=== PATIENT | male | born 1995 | race Caucasian/White ===

== ENCOUNTER 2016-04-13 21:00 | Emergency (ER) | payer OTHER ==
--- NOTE | 2016-04-13 21:40 | EDDOCDS ---
Physician Documentation [facility] Name: Soy Mora Age: 20 yrs Sex: Male : 1995 Arrival Date: 04/13/2016 Time: 21:00 Bed I8 / 16 Private MD: Willie Moore [facility] Disposition: 04/13/16 21:30 Discharged to Home/Self Care. Impression: Encounter for other postprocedural aftercare. - Condition is Stable. - Medication Reconciliation, Local Pharmacy Hours form. - Follow up: Private Physician; When: Call to arrange an appointment; Reason: Recheck today's complaints. - Problem is new. - Symptoms have improved. Historical: - Allergies: no known allergies; - Home Meds: 1. Percocet Unknown Oral 2 tabs every 6 hours (Last dose: 04/13/2016 20:00) 2. ibuprofen Unknown every 6 hours (Last dose: Unknown) - PMHx: swine flu; mononucleosis; - PSHx: none; - Social history: Smoking status: Patient uses tobacco products, current every day smoker. No barriers to communication noted, The patient speaks fluent Malaysian. - Family history: Not pertinent. - : The pt / caregiver states he / she is not on anticoagulants. Home medication list is obtained from the patient. - Exposure Risk Screening:: None identified. Vital Signs: 04/13 21:17 BP 98 / 56; Pulse 85; Resp 20 S; Temp 96(O); Pain 5/10; ms2 21:21 BP 100 / 58 LA Sitting (auto/reg); Pulse 83 MON; Resp 20 S; Temp 98.6(TE); Pulse Ox 96% cln on R/A; Weight 67.13 kg / 148 lbs (R); Height 6 ft. 0 in. (182.88 cm) (R); Pain 5/10; 21:30 BP 101 / 63; Pulse 94; Resp 20 S; Pulse Ox 96% on R/A; ms2 21:21 Body Mass Index 20.07 (67.13 kg, 182.88 cm) cln Signatures: Aidan López RN RN ms2 Uriah Woodard DO DO cs11 The chart was reviewed and I authenticate all verbal orders and agree with the evaluation and treatment provided.Corrections: (The following items were deleted from the chart) 21:32 21:16 PMHx: none; ms2 ms2 MTDD
--- NOTE | 2016-04-13 21:40 | EDDOCDS ---
Nurse's Notes [facility] Name: Soy Mora Age: 20 yrs Sex: Male : 1995 Arrival Date: 04/13/2016 Time: 21:00 Bed I8 / 16 Private MD: Willie Moore [facility] Diagnosis: Encounter for other postprocedural aftercare Presentation: 04/13 21:02 Presenting complaint: EMS states: HAD 4 WISDOM TEETH PULLED TODAY AT 1600 bleeding ms2 since got home and vomited x2 and passed out x1. Adult Sepsis Screening: The patient does not have new or worsening altered mentation. Patient's respiratory rate is less than 22. Systolic blood pressure is greater than 100. Patient has a qSOFA score of 0- Negative Sepsis Screen. Suicide/Homicide risk assessment- the patient denies having any suicidal and/or homicidal ideations and does not present with any other emotional, behavioral or mental health complaints. 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 Transition of care: patient was not received from another setting of care. 21:02 Acuity: CELESTE Level 3 ms2 21:02 Method Of Arrival: Ambulance ms2 21:19 Presenting complaint: Patient states: pt states has gone thru a whole roll of paper ms2 towels since afternoon surgery today. Triage Assessment: 21:17 General: Appears uncomfortable, Behavior is cooperative. Pain: Pain currently is 5 out ms2 of 10 on a pain scale. Pt Declines HIV testing. The patient is triaged at the bedside. See Assessment in Nurses Notes section of ED record. Neurological: Level of Consciousness is awake, alert, obeys commands. EENT: pt currently holding gauze to upper lower areas (back of mouth)-no obvious bleeding noted. Respiratory: No deficits noted. Airway is patent Respiratory effort is even, unlabored, Respiratory pattern is regular, symmetrical. Derm: Skin is pink, warm & dry. Musculoskeletal: Range of motion intact in all extremities. Historical: - Allergies: no known allergies; - Home Meds: 1. Percocet Unknown Oral 2 tabs every 6 hours (Last dose: 04/13/2016 20:00) 2. ibuprofen Unknown every 6 hours (Last dose: Unknown) - PMHx: swine flu; mononucleosis; - PSHx: none; - Social history: Smoking status: Patient uses tobacco products, current every day smoker. No barriers to communication noted, The patient speaks fluent Czech. - Family history: Not pertinent. - : The pt / caregiver states he / she is not on anticoagulants. Home medication list is obtained from the patient. - Exposure Risk Screening:: None identified. Screenin:20 Screening information is obtained from the patient. Fall risk: No risks identified. ms2 Assistance ADL's: requires no assistance with activities of daily living. Abuse/DV Screen: The patient / caregiver reports he/she is: not in a situation that causes fear, pain or injury. Nutritional screening: No deficits noted. Advance Directives: Currently, there is no health care proxy. There is no active DNR order. There is no living will. There is no Power of Injection Molding Operator. Advance directive information has not previously been placed in an [facility] medical record. Further advance directive information is declined. home support is adequate. Assessment: 21:20 General: see triage assessment. ms2 21:20 General: dr reynaga in to see pt. ms2 21:32 General: given water by dr reynaga. ms2 21:38 General: Appears in no apparent distress, Behavior is cooperative. Pain: Pain currently ms2 is 5 out of 10 on a pain scale. Neurological: Level of Consciousness is awake, alert, obeys commands. EENT: no bleeding from throat. Respiratory: No deficits noted. Airway is patent Respiratory effort is even, unlabored, Respiratory pattern is regular, symmetrical. Respiratory: Airway is patent Respiratory effort is even, unlabored, Respiratory pattern is regular, symmetrical. GI: Abdomen is flat, non- distended. Derm: Skin is pink, warm & dry. Musculoskeletal: Range of motion intact in all extremities. Vital Signs: 21:17 BP 98 / 56; Pulse 85; Resp 20 S; Temp 96(O); Pain 5/10; ms2 21:21 BP 100 / 58 LA Sitting (auto/reg); Pulse 83 MON; Resp 20 S; Temp 98.6(TE); Pulse Ox 96% cln on R/A; Weight 67.13 kg (R); Height 6 ft. 0 in. (182.88 cm) (R); Pain 5/10; 21:30 BP 101 / 63; Pulse 94; Resp 20 S; Pulse Ox 96% on R/A; ms2 21:21 Body Mass Index 20.07 (67.13 kg, 182.88 cm) cln Vitals: 21:39 Log In Time N/A - ambulance arrival. ms2 ED Course: 21:01 Patient visited by Radha Mcguire, Manufacturing Engineer Assembly. ml3 21:01 Patient moved to Waiting ml3 21:02 Willie Moore [facility] is Private Physician. ml3 21:02 Patient visited by Aidan López RN. ms2 21:02 Uriah Reynaga DO is Attending Physician. cs11 21:02 Patient visited by Uriah Reynaga DO. cs11 21:02 Patient moved to I8 / 16 ml3 21:04 Triage Initiated ms2 21:21 The patient / caregiver is instructed regarding the plan of care and ED course. ms2 21:21 No IV's were initiated during this patient's visit. No procedures done that require ms2 assistance. 21:22 Patient visited by Sarika Thibodeaux PCA. cln 21:30 Patient visited by Aidan López RN. ms2 21:38 Patient visited by Aidan López RN. ms2 21:39 The patient / caregiver is instructed regarding the plan of care and ED course. ms2 Order Results: There are currently no results for this order. Outcome: 21:30 Discharge ordered by Provider. cs11 21:39 Discharge Assessment: patient administered narcotics - no. The following High Risk ms2 Discharge criteria are identified: None. Discharged to home ambulatory, with significant other. Condition: stable. Discharge instructions given to patient, Instructed on discharge instructions, follow up and referral plans. Demonstrated understanding of instructions, Pt was receptive of discharge instructions/ teaching. No special radiology studies were completed. Property sent home with patient. 21:39 Patient left the ED. ms2 Signatures: Aidan López RN RN ms2 Radha Mcguire, Manufacturing Engineer Assembly Unit ml3 Uriah Reynaga DO DO cs11 Sarika Thibodeaux PCA LICSW cln Corrections: (The following items were deleted from the chart) 21:32 21:16 PMHx: none; ms2 ms2 MTDD
--- NOTE | 2016-04-15 22:40 | EDDOCDS ---
Nurse's Notes [facility] Name: Soy Mora Age: 20 yrs Sex: Male : 1995 Arrival Date: 04/13/2016 Time: 21:00 Bed I8 / 16 Private MD: Willie Moore [facility] Diagnosis: Encounter for other postprocedural aftercare Presentation: 04/13 21:02 Presenting complaint: EMS states: HAD 4 WISDOM TEETH PULLED TODAY AT 1600 bleeding ms2 since got home and vomited x2 and passed out x1. Adult Sepsis Screening: The patient does not have new or worsening altered mentation. Patient's respiratory rate is less than 22. Systolic blood pressure is greater than 100. Patient has a qSOFA score of 0- Negative Sepsis Screen. Suicide/Homicide risk assessment- the patient denies having any suicidal and/or homicidal ideations and does not present with any other emotional, behavioral or mental health complaints. 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 Transition of care: patient was not received from another setting of care. 21:02 Acuity: CELESTE Level 3 ms2 21:02 Method Of Arrival: Ambulance ms2 21:19 Presenting complaint: Patient states: pt states has gone thru a whole roll of paper ms2 towels since afternoon surgery today. Triage Assessment: 21:17 General: Appears uncomfortable, Behavior is cooperative. Pain: Pain currently is 5 out ms2 of 10 on a pain scale. Pt Declines HIV testing. The patient is triaged at the bedside. See Assessment in Nurses Notes section of ED record. Neurological: Level of Consciousness is awake, alert, obeys commands. EENT: pt currently holding gauze to upper lower areas (back of mouth)-no obvious bleeding noted. Respiratory: No deficits noted. Airway is patent Respiratory effort is even, unlabored, Respiratory pattern is regular, symmetrical. Derm: Skin is pink, warm & dry. Musculoskeletal: Range of motion intact in all extremities. Historical: - Allergies: no known allergies; - Home Meds: 1. Percocet Unknown Oral 2 tabs every 6 hours (Last dose: 04/13/2016 20:00) 2. ibuprofen Unknown every 6 hours (Last dose: Unknown) - PMHx: swine flu; mononucleosis; - PSHx: none; - Social history: Smoking status: Patient uses tobacco products, current every day smoker. No barriers to communication noted, The patient speaks fluent Central African. - Family history: Not pertinent. - : The pt / caregiver states he / she is not on anticoagulants. Home medication list is obtained from the patient. - Exposure Risk Screening:: None identified. Screenin:20 Screening information is obtained from the patient. Fall risk: No risks identified. ms2 Assistance ADL's: requires no assistance with activities of daily living. Abuse/DV Screen: The patient / caregiver reports he/she is: not in a situation that causes fear, pain or injury. Nutritional screening: No deficits noted. Advance Directives: Currently, there is no health care proxy. There is no active DNR order. There is no living will. There is no Power of Survey Questionnaire Designer. Advance directive information has not previously been placed in an [facility] medical record. Further advance directive information is declined. home support is adequate. Assessment: 21:20 General: see triage assessment. ms2 21:20 General: dr reynaga in to see pt. ms2 21:32 General: given water by dr reynaga. ms2 21:38 General: Appears in no apparent distress, Behavior is cooperative. Pain: Pain currently ms2 is 5 out of 10 on a pain scale. Neurological: Level of Consciousness is awake, alert, obeys commands. EENT: no bleeding from throat. Respiratory: No deficits noted. Airway is patent Respiratory effort is even, unlabored, Respiratory pattern is regular, symmetrical. Respiratory: Airway is patent Respiratory effort is even, unlabored, Respiratory pattern is regular, symmetrical. GI: Abdomen is flat, non- distended. Derm: Skin is pink, warm & dry. Musculoskeletal: Range of motion intact in all extremities. Vital Signs: 21:17 BP 98 / 56; Pulse 85; Resp 20 S; Temp 96(O); Pain 5/10; ms2 21:21 BP 100 / 58 LA Sitting (auto/reg); Pulse 83 MON; Resp 20 S; Temp 98.6(TE); Pulse Ox 96% cln on R/A; Weight 67.13 kg (R); Height 6 ft. 0 in. (182.88 cm) (R); Pain 5/10; 21:30 BP 101 / 63; Pulse 94; Resp 20 S; Pulse Ox 96% on R/A; ms2 21:21 Body Mass Index 20.07 (67.13 kg, 182.88 cm) cln Vitals: 21:39 Log In Time N/A - ambulance arrival. ms2 ED Course: 21:01 Patient visited by Radha Mcguire, Regional Maintenance Manager. ml3 21:01 Patient moved to Waiting ml3 21:02 Vandiver, [facility] is Private Physician. ml3 21:02 Patient visited by Aidan López RN. ms2 21:02 Uriah Reynaga DO is Attending Physician. cs11 21:02 Patient visited by Uriah Reynaga DO. cs11 21:02 Patient moved to I8 / 16 ml3 21:04 Triage Initiated ms2 21:21 The patient / caregiver is instructed regarding the plan of care and ED course. ms2 21:21 No IV's were initiated during this patient's visit. No procedures done that require ms2 assistance. 21:22 Patient visited by Sarika Thibodeaux PCA. cln 21:30 Patient visited by Aidan López RN. ms2 21:38 Patient visited by Aidan López RN. ms2 21:39 The patient / caregiver is instructed regarding the plan of care and ED course. ms2 22:08 [facility] Payment Agreement was scanned into [employer] and attached to record. ks16 04/14 11:46 T-Sheet-- Draft Copy was scanned into [employer] and attached to record. gb Order Results: There are currently no results for this order. Outcome: 04/13 21:30 Discharge ordered by Provider. cs11 21:39 Discharge Assessment: patient administered narcotics - no. The following High Risk ms2 Discharge criteria are identified: None. Discharged to home ambulatory, with significant other. Condition: stable. Discharge instructions given to patient, Instructed on discharge instructions, follow up and referral plans. Demonstrated understanding of instructions, Pt was receptive of discharge instructions/ teaching. No special radiology studies were completed. Property sent home with patient. 21:39 Patient left the ED. ms2 Signatures: Aidan López RN RN ms2 DilanleikalenLeanna, Reg Reg gb Radha Mcguire, Regional Maintenance Manager Unit ml3 Uriah Reynaga DO DO cs11 Ayala Matamoros, Reg Reg ks16 Sarika Thibodeaux PCA [employer] cln Corrections: (The following items were deleted from the chart) 21:32 21:16 PMHx: none; ms2 ms2 Chart Complete MTDD
--- NOTE | 2016-04-15 22:40 | EDDOCDS ---
Physician Documentation [facility] Name: Soy Mora Age: 20 yrs Sex: Male : 1995 Arrival Date: 04/13/2016 Time: 21:00 Bed I8 / 16 Private MD: Willie Moore [facility] Disposition: 04/13/16 21:30 Discharged to Home/Self Care. Impression: Encounter for other postprocedural aftercare. - Condition is Stable. - Medication Reconciliation, Local Pharmacy Hours form. - Follow up: Private Physician; When: Call to arrange an appointment; Reason: Recheck today's complaints. - Problem is new. - Symptoms have improved. Historical: - Allergies: no known allergies; - Home Meds: 1. Percocet Unknown Oral 2 tabs every 6 hours (Last dose: 04/13/2016 20:00) 2. ibuprofen Unknown every 6 hours (Last dose: Unknown) - PMHx: swine flu; mononucleosis; - PSHx: none; - Social history: Smoking status: Patient uses tobacco products, current every day smoker. No barriers to communication noted, The patient speaks fluent Rwandan. - Family history: Not pertinent. - : The pt / caregiver states he / she is not on anticoagulants. Home medication list is obtained from the patient. - Exposure Risk Screening:: None identified. Vital Signs: 04/13 21:17 BP 98 / 56; Pulse 85; Resp 20 S; Temp 96(O); Pain 5/10; ms2 21:21 BP 100 / 58 LA Sitting (auto/reg); Pulse 83 MON; Resp 20 S; Temp 98.6(TE); Pulse Ox 96% cln on R/A; Weight 67.13 kg / 148 lbs (R); Height 6 ft. 0 in. (182.88 cm) (R); Pain 5/10; 21:30 BP 101 / 63; Pulse 94; Resp 20 S; Pulse Ox 96% on R/A; ms2 21:21 Body Mass Index 20.07 (67.13 kg, 182.88 cm) cln MDM: 22:07 Financial registration complete. ks16 22:07 Undo -Financial registration. ks16 22:07 Financial registration complete. ks16 22:07 Undo -Financial registration. ks16 22:07 Financial registration complete. ks16 22:08 [facility] Payment Agreement was scanned into [employer] and attached to record. 04/14 11:46 T-Sheet-- Draft Copy was scanned into [employer] and attached to record. gb Signatures: Aidan LópezRN RN ms2 DilanleiparthLeanna menchaca, Reg Reg gb Uriah Woodard, DO cs11 Ayala Matamoros, Reg Reg ks16 The chart was reviewed and I authenticate all verbal orders and agree with the evaluation and treatment provided.Corrections: (The following items were deleted from the chart) 04/13 21:32 21:16 PMHx: none; ms2 ms2 Attachments: 22:08 [facility] Payment Agreement 04/14 11:46 T-Sheet-- Draft Copy gb Chart Complete MTDD
--- NOTE | 2016-04-15 22:40 | EDDOCDS ---
Physician Documentation [facility] Name: Soy Mora Age: 20 yrs Sex: Male : 1995 Arrival Date: 04/13/2016 Time: 21:00 Bed I8 / 16 Private MD: Willie Moore [facility] Disposition: 04/13/16 21:30 Discharged to Home/Self Care. Impression: Encounter for other postprocedural aftercare. - Condition is Stable. - Medication Reconciliation, Local Pharmacy Hours form. - Follow up: Private Physician; When: Call to arrange an appointment; Reason: Recheck today's complaints. - Problem is new. - Symptoms have improved. Historical: - Allergies: no known allergies; - Home Meds: 1. Percocet Unknown Oral 2 tabs every 6 hours (Last dose: 04/13/2016 20:00) 2. ibuprofen Unknown every 6 hours (Last dose: Unknown) - PMHx: swine flu; mononucleosis; - PSHx: none; - Social history: Smoking status: Patient uses tobacco products, current every day smoker. No barriers to communication noted, The patient speaks fluent Liberian. - Family history: Not pertinent. - : The pt / caregiver states he / she is not on anticoagulants. Home medication list is obtained from the patient. - Exposure Risk Screening:: None identified. Vital Signs: 04/13 21:17 BP 98 / 56; Pulse 85; Resp 20 S; Temp 96(O); Pain 5/10; ms2 21:21 BP 100 / 58 LA Sitting (auto/reg); Pulse 83 MON; Resp 20 S; Temp 98.6(TE); Pulse Ox 96% cln on R/A; Weight 67.13 kg / 148 lbs (R); Height 6 ft. 0 in. (182.88 cm) (R); Pain 5/10; 21:30 BP 101 / 63; Pulse 94; Resp 20 S; Pulse Ox 96% on R/A; ms2 21:21 Body Mass Index 20.07 (67.13 kg, 182.88 cm) cln MDM: 22:07 Financial registration complete. [email or web address] 22:07 Undo -Financial registration. ks16 22:07 Financial registration complete. ks16 22:07 Undo -Financial registration. ks16 22:07 Financial registration complete. ks16 22:08 [facility] Payment Agreement was scanned into [employer] and attached to record. 04/14 11:46 T-Sheet-- Draft Copy was scanned into [employer] and attached to record. gb Signatures: Aidan LópezRN RN ms2 DilanleiparthLeanna menchaca, Reg Reg gb Uriah Woodard, DO cs11 Ayala Matamoros, Reg Reg ks16 The chart was reviewed and I authenticate all verbal orders and agree with the evaluation and treatment provided.Corrections: (The following items were deleted from the chart) 04/13 21:32 21:16 PMHx: none; ms2 ms2 Attachments: 22:08 [facility] Payment Agreement 04/14 11:46 T-Sheet-- Draft Copy gb Chart Complete MTDD
== END 2016-04-13 21:39 | disposition home or self-care (01) ==
LOC: M ED 21:00
DX: Z48.814 Encounter for surgical aftercare following surgery on the teeth or oral cavity (principal); K08.409 Partial loss of teeth, unspecified cause, unspecified class

== ENCOUNTER 2017-03-01 19:41 | Emergency (ER) | payer OTHER ==
[~2017-03-01] VITALS: Ht 182.9 cm; Wt 65.9 kg
[2017-03-01] MEDS ORDERED: predniSONE 20 MG TAB PO ONE (23:15)
[2017-03-01] MEDS ORDERED: diazePAM 5 MG TAB PO ONE (23:15)
[2017-03-01] MEDS ORDERED: VALI5TAB PO (23:22)
[2017-03-01] MEDS ORDERED: PRED20TA PO (23:22)
[2017-03-01 23:31] VITALS: BP 122/72
== END 2017-03-01 23:36 | disposition home or self-care (01) ==
LOC: M ED 19:41
DX: M54.41 Lumbago with sciatica, right side (principal); F17.210 Nicotine dependence, cigarettes, uncomplicated